=== PATIENT | male | born 1955 | race Caucasian/White ===

== ENCOUNTER 2019-03-01 12:44 | Emergency (ER) | payer BC ==
[~2019-03-01] VITALS: Ht 177.8 cm; Wt 110.2 kg
[2019-03-01 12:51] VITALS: Ht 177.8 cm; Wt 110.2 kg
[2019-03-01 15:41] VITALS: BP 157/96
== END 2019-03-01 16:18 | disposition home or self-care (01) ==
LOC: ED 12:44
DX: S83.91XA Sprain of unspecified site of right knee, initial encounter (principal); I10 Essential (primary) hypertension; X58.XXXA Exposure to other specified factors, initial encounter; Y93.89 Activity, other specified; Y92.89 Other specified places as the place of occurrence of the external cause; Y99.8 Other external cause status
CPT/HCPCS: Q0092